=== PATIENT | male | born 1960 | race African-American/Black ===

== ENCOUNTER 2020-06-11 16:53 | Inpatient (IN) | payer OTHER, SELFPAY ==
[2020-06-11] MEDS ORDERED: Ondansetron PF 4 MG/2 ML Vial ONE (17:08)
[2020-06-11 17:20] LABS: #Basophils 0.1 thou/uL (0.0-0.2); #Eosinphils 0.2 thou/uL (0.0-0.7); #Lymphocytes 2.3 thou/uL (1.20-3.40); #Monocytes 0.4 thou/uL (0.11-0.59); #Neutrophils 5.1 thou/uL (1.40-6.50); %Basophils 0.7 % (0.0-1.0); %Eosinophils 2.6 % (0.0-10.0); %Lymphocytes 27.9 % (21.0-51.0); %Monocytes 5.2 % (0.0-10.0); %Neutrophils 63.6 % (42.0-75.0); Hemoglobin 15.6 g/dL (14.0-18.0); Mean Corpuscular Hemoglobin 31.7 pg (27.0-31.0); Mean Corpuscular Volume 90.3 fL (78.0-98.0); Mean Platelet Volume 7.3 fL (7.4-10.4); Platelet Count 249 thou/uL (130-400); RBC Distribution Width 11.2 % (11.5-14.5); Red Blood Cell (RBC) Count 4.94 mill/uL (4.70-6.10); White Blood Cell (WBC) Count 8.1 thou/uL (4.8-10.8)
[2020-06-11 17:26] LABS: PTT 23.3 sec (22.9-36.1); Prothrombin Time 13.6 sec (12.0-14.7)
--- NOTE | 2020-06-11 17:35 | CT ---
CT Brain WO Con History: Dizziness Comparison: None. 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 Moderate microvascular ischemic c hanges, greater in the right belcher radiata than left. No acute hemorrhage or territorial infarction. Old right medial orbital wall fracture. Calvarium is intact. Mastoids are clear. Right pontine hypodensity appears well formed, likely chronic as there is adjacent encephalomalacia. Impression: Chronic findings. No acute intracranial abnormality.
[2020-06-11] MEDS ORDERED: Diazepam 5 MG TAB ONE (17:40)
[2020-06-11] MEDS ORDERED: Meclizine HCl 25 MG TAB ONE (17:41)
[2020-06-11 17:42] LABS: ALT (SGPT) 21 U/L (8-55); AST (SGOT) 15 U/L (5-34); Albumin 4.4 g/dL (3.5-5.0); Alkaline Phosphatase 69 U/L (40-110); Anion Gap 17 mmol/L (10-20); BUN (Urea Nitrogen) 12 mg/dL (8.4-25.7); Bilirubin, Total 0.4 mg/dL (0.2-1.2); CK (CPK) 113 U/L (30-200); Calc. Creatinine Clearance 0 mL/min (70-130); Carbon Dioxide 21 mmol/L (22-29); Chloride 108 mmol/L (98-107); Estimated GFR-MDRD Greater than 90; Globulin 3.2 g/dL (2.4-3.5); Glucose 121 mg/dL (70-105); Protein, Total 7.6 g/dL (6.0-8.3); Sodium 143 mmol/L (136-145)
[2020-06-11 17:50] LABS: Potassium 2.9 mmol/L (3.5-5.1)
[2020-06-11] MEDS ORDERED: Potassium Chloride 20 MEQ TAB ONE (19:52)
[2020-06-11] MEDS ORDERED: Ondansetron PF 4 MG/2 ML Vial IVP PRN (20:17)
[2020-06-11] MEDS ORDERED: Acetaminophen 325 MG TAB PO PRN (20:17)
[2020-06-11] MEDS ORDERED: Senokot S 8.6-50 MG TAB PO PRN (20:17)
--- NOTE | 2020-06-11 21:26 | PDOC.HHP ---
Hospitalist HPI - History of Present Illness Dizziness, weakness and n/v History of Present Illness: 59M presents to the ED for evaluation of vertigo, weakness and nausea and vomiting. Reports symptoms started yesterday but worse today. Family member at the bedside reports they had to help him inside today because he was weak and was having trouble walking while retching. Patient reports bilateral leg wea kness, denies focal weakness, numbness or tingling. Reports a headache, denies fever, chills, cough, SOB. Denies history of symptoms in the past. Reports he has been told he had hypertension but states he does not take any medicine for it. Reports symptoms are most severe with movement. Reports ataxia. Patient with vomiting in the ED with any movement, Zofran, valium and meclizine given without much relief. Head CT scan with old infarctions which he was not aware he had. Reports a frontal headache which he said has changed; he initially had a posterior headache. He is being admitted to stroke to rule out a posterior CVA. Hospitalist ROS - Review of Systems Constitutional: reports: weakness Eyes: denies: pain, vision change, conjunctivae inflammation, eyelid inflammation, redness, other ENT: denies: ear pain, ear discharge, nose pain, nose discharge, nose congestion, mouth pain, mouth swelling, throat pain, throat swelling, other Respiratory: denies: cough, dry, shortness of breath, hemoptysis, SOB with excertion, pleuritic pain, sputum, wheezing, other Cardiovascular: reports: light headedness Gastrointestinal: reports: nausea, vomiting. denies: abdominal pain Genitourinary: reports: incontinence (reports he has trouble getting to the bathroom on time when he has the urge to urinate; this has been going on for months.) Musculoskeletal: denies: neck pain, shoulder pain, arm pain, back pain, hand pain, leg pain, foot pain, other Neurological: reports: weakness Hospitalist History - Past Medical History Cardiac: reports: HTN Pulmonary: reports: hypertension [employer]: reports: Vertigo Gastrointestinal: denies: no pertinent history, Constipation, Diverticulosis, GERD, GI bleed, Gastritis, Hemorrhoids, Inflam bowel disease, Irritable bowel disease, Peptic ulcer disease, Other - Past Surgical History Past Surgical History: reports: no pertinent history - Family History Family History: reports: cardiac disorder, hypertension - Social History Smoking Status: Current every day smoker Alcohol: reports: Heavy Drugs: reports: marijuana Living Situation: Alone Activity level: independent ambulation - Exam General Appearance: ill appearing Eye: PERRL ENT: normocephalic atraumatic, dry oral mucosa Neck: supple, no JVD Heart: RRR, normal peripheral pulses Respiratory: CTAB, normal chest expansion Gastrointestinal: soft, normal bowel sounds Extremities: no edema Skin: normal turgor Neurological: cranial nerve grossly intact Musculoskeletal: normal strength Psychiatric: normal affect, A&O x 3 Hospitalist Results - Labs Result Diagrams: 06/11/20 17:06 06/11/20 17:06 Lab results: WBC 8.1 thou/uL (4.8-10.8) 06/11/20 17:06 Hgb 15.6 g/dL (14.0-18.0) 06/11/20 17:06 Hct 44.6 % (42.0-52.0) 06/11/20 17:06 MCV 90.3 fL (78.0-98.0) 06/11/20 17:06 Plt Count 249 thou/uL (130-400) 06/11/20 17:06 Neutrophils % 63.6 % (42.0-75.0) 06/11/20 17:06 Sodium 143 mmol/L (136-145) 06/11/20 17:06 Potassium 2.9 mmol/L (3.5-5.1) L* 06/11/20 17:06 Chloride 108 mmol/L (98-107) H 06/11/20 17:06 Carbon Dioxide 21 mmol/L (22-29) L 06/11/20 17:06 BUN 12 mg/dL (8.4-25.7) 06/11/20 17:06 Creatinine 1.02 mg/dL (0.7-1.3) 06/11/20 17:06 Glucose 121 mg/dL (70-105) H 06/11/20 17:06 Calcium 9.0 mg/dL (7.8-10.44) 06/11/20 17:06 Total Bilirubin 0.4 mg/dL (0.2-1.2) 06/11/20 17:06 AST 15 U/L (5-34) 06/11/20 17:06 ALT 21 U/L (8-55) 06/11/20 17:06 Alkaline Phosphatase 69 U/L (40-110) 06/11/20 17:06 Creatine Kinase 113 U/L (30-200) 06/11/20 17:06 Troponin I Less than 0.010 ng/mL (< 0.028) 06/11/20 17:06 Serum Total Protein 7.6 g/dL (6.0-8.3) 06/11/20 17:06 Albumin 4.4 g/dL (3.5-5.0) 06/11/20 17:06 - Radiology Interpretation CT scan - head Status: report reviewed by me (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.) Hospitalist H&P A/P - Problem (1) Dizziness Code(s): R42 - DIZZINESS AND GIDDINESS Status: Acute (2) Hypertension Code(s): I10 - ESSENTIAL (PRIMARY) HYPERTENSION Status: Chronic (3) Nausea & vomiting Code(s): R11.2 - NAUSEA WITH VOMITING, UNSPECIFIED Status: Acute (4) Headache Code(s): R51 - HEADACHE Status: Acute (5) Weakness Code(s): R53.1 - WEAKNESS Status: Acute (6) Hypokalemia Code(s): E87.6 - HYPOKALEMIA Status: Acute - Plan Plan: Admit to Stroke MRI brain w/o contrast, Echo, carotid with doppler, neuro checks q4, PT/OT/Speech Repeat labs in am with lipids and tsh Zofran for nausea; meclizine q8h, ASA and statin Hypokalemia: given K oral in ED; NS with 40meq KCL @ 75mls/hr; recheck K in AM Will check UA DVT/GI prophylaxis
[2020-06-11] MEDS ORDERED: Promethazine HCl 25 MG/ML VIAL IM/IV SCH (21:45)
[2020-06-11] MEDS: Famotidine 20 MG TAB PO SCH (22:01)
[2020-06-11] MEDS: NS 0.9% w/ 40 MEQ KCL 1,000 ML IV SCH (22:35)
[2020-06-12 01:41] VITALS: BMI 38.2
[2020-06-12 05:24] LABS: #Eosinphils 0.1 thou/uL (0.0-0.7); #Lymphocytes 2.1 thou/uL (1.20-3.40); #Monocytes 0.6 thou/uL (0.11-0.59); #Neutrophils 4.2 thou/uL (1.40-6.50); %Basophils 0.3 % (0.0-1.0); %Eosinophils 1.8 % (0.0-10.0); %Lymphocytes 30.1 % (21.0-51.0); %Monocytes 8.8 % (0.0-10.0); Hemoglobin 14.2 g/dL (14.0-18.0); Mean Corpuscular HGB CONC 34.8 g/dL (32.0-36.0); Mean Corpuscular Hemoglobin 31.9 pg (27.0-31.0); Mean Corpuscular Volume 91.5 fL (78.0-98.0); Mean Platelet Volume 7.4 fL (7.4-10.4); Platelet Count 216 thou/uL (130-400); RBC Distribution Width 11.3 % (11.5-14.5); Red Blood Cell (RBC) Count 4.47 mill/uL (4.70-6.10)
[2020-06-12 05:58] LABS: Anion Gap 12 mmol/L (10-20); BUN (Urea Nitrogen) 10 mg/dL (8.4-25.7); Calc. Creatinine Clearance 154 mL/min (70-130); Calcium 8.3 mg/dL (7.8-10.44); Carbon Dioxide 21 mmol/L (22-29); Chloride 111 mmol/L (98-107); Cholesterol 149 mg/dl (< 200 Desired); Estimated GFR-MDRD Greater than 90; Glucose 97 mg/dL (70-105); HDL Cholesterol 30 mg/dL (>60 Neg Risk); LDL Cholesterol, Calculated 92 mg/dL; Sodium 140 mmol/L (136-145); Triglycerides 137 mg/dL (Less than 150)
[2020-06-12] MEDS: Meclizine HCl 25 MG TAB PO SCH ×3 (06:10→22:43)
--- NOTE | 2020-06-12 08:14 | ULT ---
BILATERAL CAROTID DUPLEX ULTRASOUND INCLUDING COLOR AN DSPECTRAL DOPPLER IMAGING: HISTORY: Dizziness. FINDINGS: Very mild intimal thickening, particularly in the distal left CCA. PSV right ICA 54 cm/s. EDV 14 cm/s. ICA/CCA ratio 0.4. PSV left ICA 65 cm/s. EDV 23 cm/s. ICA/CCA ratio 0.9. Vertebral flow is antegrade. IMPRESSION: No hemodynamically significant stenosis. 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 POS: OFF
[2020-06-12] MEDS: Aspirin 325 mg Enteric Coated Tablet PO SCH (08:53)
[2020-06-12] MEDS: Famotidine 20 MG TAB PO SCH ×2 (08:53→20:45)
[2020-06-12] MEDS: Enoxaparin Sodium 40 MG/0.4 ML SYRINGE SC SCH (08:53)
--- NOTE | 2020-06-12 09:53 | MRI ---
EXAM: MRI Brain WO Con PROVIDED CLINICAL HISTORY: Vertigo/dizziness. Nausea and vomiting. COMPARISON: CT head on 06/11/2020 FINDINGS: There is increased FLAIR and T2-weighted signal intensity seen within the periventricular and subcort ical white matter which is nonspecific but likely attributable to chronic small vessel ischemic changes with areas of minimal cavitation of white matter infarctions. Small cavitated lacunar infarct ion are seen in the left thalamus, right basal ganglia, and in the jerome bilaterally. No areas of restricted diffusion are seen to suggest an acute infarction. The septum pellucidum and third ventricle are in the midline. Mild cerebral and cerebellar volume los s is present. The ventricular system is normal in size, shape, and position for the degree of sulcal atrophy. Appropriate flow voids are demonstrated in the large intracranial vessels at the base of the brain. Trace mucosal thickening is seen in left ethmoidal air cells. There is trace mucosal thickening seen in a few right mastoid air cells. The orbits and remainder of the the skull base have a normal MRI appearance. IMPRESSION: 1. No acute intracranial abnormalities demonstrated. 2. Evidence likely attributable to chronic small vessel ischemic changes with scattered remote lacuna r infarctions within the right basal ganglia, left thalamus, and in the jerome.
[2020-06-12 10:11] LABS: Bacteria/HPF None Seen HPF (None Seen); Bilirubin Negative (Negative); Blood, Urine Negative (Negative); Clarity Clear (Clear); Glucose, Urine (Dipstick) Normal (Negative); Ketone, Urine Negative (Negative); Leukocyte Negative Leu/uL (Negative); Mucous/LPF 1+ LPF (<2+); Nitrite Negative (Negative); Protein, Urine (Dipstick) 20 mg/dL (Neg-Trace); RBC/HPF 0-3 HPF (0-3); Squamous Epithelial 0-3 HPF (0-3); Urobilinogen Normal mg/dL (Less than 2)
[2020-06-12 10:12] LABS: Urine Culture Reflex Yes Yes
[2020-06-12 10:22] LABS: Amphetamine Not Detected (NotDetected); Barbiturates Screen Not Detected (NotDetected); Benzodiazepine Screen Detected (NotDetected); Cocaine Metabolite Screen Not Detected (NotDetected); Medtox Control Line Valid? VALID (VALID); Medtox Reader # READER 1; Methadone Not Detected (NotDetected); Methamphetamine Not Detected (NotDetected); Opiate Screen Not Detected (NotDetected); Oxycodone Screen Not Detected (NotDetected); Phencyclidine (PCP) Not Detected (NotDetected); THC/Cannabinoid Screen Detected (NotDetected); Tricyclic Screen Not Detected (NotDetected)
[2020-06-12] MEDS: NS 0.9% w/ 40 MEQ KCL 1,000 ML IV SCH (10:57)
--- NOTE | 2020-06-12 11:47 | PDOC.HOSPP ---
- Subjective Encounter Date: 06/12/20 Encounter Time: 08:50 Subjective: Patient feels slightly better. He is able to walk to the restroom and take a shower with his 's help. His dizziness is improving. It is a room spinning sensation. No hearing deficits or tinnitus. No fullness in his ears. - Objective Vital Signs & Weight: Vital Signs (12 hours) Temp Pulse Resp BP Pulse Ox 06/12/20 07:27 98.2 F 62 20 166/100 H 97 06/12/20 04:00 97.8 F 63 14 176/91 H 98 06/12/20 00:00 98.4 F 90 14 163/86 H 98 Weight Weight 243 lb 14.4 oz I&O: 06/11/20 06/12/20 06/13/20 06:59 06:59 06:59 Intake Total 350 Output Total 400 Balance -50 Result Diagrams: 06/12/20 04:51 06/12/20 04:51 Hospitalist ROS - Medication Medications: Active Medications Generic Name Dose Route Start Last Admin Trade Name Franklyn PRN Reason Stop Dose Admin Aspirin 325 mg 06/12/20 09:00 06/12/20 08:53 Aspirin 325 Mg Enteric Coated Tablet PO 325 mg DAILY LUPE Administration Enoxaparin Sodium 40 mg 06/12/20 09:00 06/12/20 08:53 Enoxaparin Sodium 40 Mg/0.4 Ml Syringe SC 40 mg 0900 LUPE Administration Famotidine 20 mg 06/11/20 21:00 06/12/20 08:53 Famotidine 20 Mg Tab PO 20 mg BID LUPE Administration Potassium Chloride/Sodium Chloride 1,000 mls @ 75 mls/hr 06/11/20 20:30 06/12/20 10:57 Ns 0.9% W/ 40 Meq Kcl IV Not Given .[id number] LUPE Meclizine HCl 25 mg 06/12/20 06:00 06/12/20 06:10 Meclizine Hcl 25 Mg Tab PO 25 mg Q8HR LUPE Administration - Exam General Appearance: NAD, awake alert Eye: PERRL ENT: normocephalic atraumatic ENT - other findings: No hearing deficits or tinnitus. No fullness in his ears. Neck: supple Heart: RRR Respiratory: CTAB, normal chest expansion Gastrointestinal: soft, normal bowel sounds Neurological: cranial nerve grossly intact, no focal deficits Psychiatric: A&O x 3 Hosp A/P - Plan (1) Dizziness Code(s): R42 - DIZZINESS AND GIDDINESS Status: Acute (2) Hypertension Code(s): I10 - ESSENTIAL (PRIMARY) HYPERTENSION Status: Chronic (3) Nausea & vomiting Code(s): R11.2 - NAUSEA WITH VOMITING, UNSPECIFIED Status: Acute (4) Headache Code(s): R51 - HEADACHE Status: Acute (5) Weakness Code(s): R53.1 - WEAKNESS Status: Acute (6) Hypokalemia Code(s): E87.6 - HYPOKALEMIA Status: Acute -Resolved Dizziness -Etiology so far unknown as imaging studies are nondiagnostic so far as below -No hearing deficits no ear fullness no tinnitus -No recent infection including cough and fever. UDS shows benzos and marijuana positive. 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 Meclizine helping him.
[2020-06-12] MEDS ORDERED: hydrALAZINE 20 MG/ML VIAL SLOW IVP PRN (13:17)
[2020-06-12] MEDS: hydrALAZINE 25 MG TAB PO SCH ×2 (13:56→20:45)
[2020-06-12] MEDS: Atorvastatin Calcium 40 MG TAB PO SCH (20:45)
[2020-06-12] MEDS: Amlodipine 5 MG TAB PO SCH (20:45)
[2020-06-13] MEDS ORDERED: Enalaprilat Dihydrate 1.25 MG/ML VIAL SLOW IVP SCH (05:45)
[2020-06-13] MEDS: Meclizine HCl 25 MG TAB PO SCH ×3 (06:10→23:46)
[2020-06-13] MEDS: Famotidine 20 MG TAB PO SCH ×2 (09:17→20:23)
[2020-06-13] MEDS: Amlodipine 5 MG TAB PO SCH (09:17)
[2020-06-13] MEDS: Aspirin 325 mg Enteric Coated Tablet PO SCH (09:17)
[2020-06-13] MEDS: hydrALAZINE 25 MG TAB PO SCH ×3 (09:17→20:23)
[2020-06-13] MEDS: Enoxaparin Sodium 40 MG/0.4 ML SYRINGE SC SCH (09:17)
[2020-06-13] MEDS ORDERED: hydrALAZINE 25 MG TAB PO SCH ×2 (09:45→10:15)
--- NOTE | 2020-06-13 11:53 | PDOC.HOSPP ---
- Subjective Encounter Date: 06/13/20 Encounter Time: 09:00 Subjective: Patient sitting in the chair he feels good. No disease seen times today. His blood pressure is still in the 170 range. He has not taken me his blood pressure medications for years. Discussed with RN. Will be a little aggressive in increasing his hydralazine dose. I am also adding diuretics. - Objective Vital Signs & Weight: Vital Signs (12 hours) Temp Pulse Resp BP BP Pulse Ox 06/13/20 11:41 98 F 68 20 164/98 H 96 06/13/20 10:19 67 181/95 H 06/13/20 07:35 97.9 F 65 20 170/91 H 98 06/13/20 06:10 172/91 H 06/13/20 04:45 182/99 H 06/13/20 03:14 98.0 F 62 15 166/94 H 98 06/13/20 00:15 98.2 F 64 20 164/88 H 97 Weight Weight 241 lb 12.8 oz I&O: 06/12/20 06/13/20 06/14/20 06:59 06:59 06:59 Intake Total 350 Output Total 400 Balance -50 Result Diagrams: 06/12/20 04:51 06/12/20 04:51 Hospitalist ROS - Medication Medications: Active Medications Generic Name Dose Route Start Last Admin Trade Name Franklyn PRN Reason Stop Dose Admin Aspirin 325 mg 06/12/20 09:00 06/13/20 09:17 Aspirin 325 Mg Enteric Coated Tablet PO 325 mg DAILY LUPE Administration Atorvastatin Calcium 40 mg 06/12/20 21:00 06/12/20 20:45 Atorvastatin Calcium 40 Mg Tab PO 40 mg HS LUPE Administration Enoxaparin Sodium 40 mg 06/12/20 09:00 06/13/20 09:17 Enoxaparin Sodium 40 Mg/0.4 Ml Syringe SC 40 mg 0900 LUPE Administration Famotidine 20 mg 06/11/20 21:00 06/13/20 09:17 Famotidine 20 Mg Tab PO 20 mg BID LUPE Administration Hydralazine HCl 50 mg 06/13/20 10:15 06/13/20 10:19 Hydralazine 25 Mg Tab PO 06/13/20 13:00 50 mg NOW LUPE Administration Meclizine HCl 25 mg 06/12/20 06:00 06/13/20 06:10 Meclizine Hcl 25 Mg Tab PO 25 mg Q8HR LUPE Administration - Exam General Appearance: NAD, awake alert Eye: PERRL ENT: normocephalic atraumatic Neck: supple Heart: RRR Respiratory: CTAB, normal chest expansion Gastrointestinal: soft, normal bowel sounds Psychiatric: A&O x 3 Hosp A/P - Plan (1) Dizziness Code(s): R42 - DIZZINESS AND GIDDINESS Status: Acute (2) Hypertension Code(s): I10 - ESSENTIAL (PRIMARY) HYPERTENSION Status: Chronic (3) Nausea & vomiting Code(s): R11.2 - NAUSEA WITH VOMITING, UNSPECIFIED Status: Acute (4) Headache Code(s): R51 - HEADACHE Status: Acute (5) Weakness Code(s): R53.1 - WEAKNESS Status: Acute (6) Hypokalemia Code(s): E87.6 - HYPOKALEMIA Status: Acute -Resolved Dizziness -Etiology so far unknown as imaging studies are nondiagnostic so far as below -No hearing deficits no ear fullness no tinnitus -No recent infection including cough and fever. UDS shows benzos and marijuana positive. 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 Meclizine helping him. -Echo shows EF of 55%. No valvular abnormalities. Uptitrating his blood pressure medications. His dizziness probably reflective of uncontrolled blood pressure at baseline. Diuretics and hydralazine. I will follow-up higher even though the hydrochlorothiazide once daily I will do twice a day today and and then see how his blood pressure trending next 24 hours and then switch to once daily. If blood pressure improved probable discharge tomorrow
--- NOTE | 2020-06-13 12:53 | CON ---
NEUROLOGY CONSULTATION DATE OF CONSULTATION: 06/13/2020 REASON FOR CONSULTATION: Dizziness, rule out posterior circulation TIA. HISTORY OF PRESENT ILLNESS: Mr. Yo Hernandez is a 59-year-old male with history significant for extreme dizziness with nausea, vomiting, and generalized weakness, presented to the emergency room on 06/11/2020. The patient also reported headache with bilateral leg weakness, but he denies any focal weakness or focal paresthesias. Reports nausea, vomiting, but denies chest pain, ear pain, cough, shortness of breath, loss of vision, blurred vision, or abnormal involuntary movements associated with the episode. In the emergency room, he received Zofran, Valium, and meclizine without much relief. Head CT was done, which showed prior infarction, but no acute intracranial pathology. He was admitted to rule out posterior circulation TIA. REVIEW OF SYSTEMS: All 14 systems were reviewed and were negative except the pertinent positives and negatives mentioned in the HPI. PAST MEDICAL HISTORY: Hypertension, vertigo. PAST SURGICAL HISTORY: No significant past surgical history. FAMILY HISTORY: Significant for coronary artery disease, hypertension, smoking. SOCIAL HISTORY: The patient smokes every day. History of alcohol and marijuana abuse. He lives alone and activity level is independent ambulation. ALLERGIES: NKDA - Objective Vital Signs & Weight: Vital Signs (12 hours) Temp Pulse Resp BP BP Pulse Ox 06/13/20 11:41 98 F 68 20 164/98 H 96 06/13/20 10:19 67 181/95 H 06/13/20 07:35 97.9 F 65 20 170/91 H 98 06/13/20 06:10 172/91 H 06/13/20 04:45 182/99 H 06/13/20 03:14 98.0 F 62 15 166/94 H 98 06/13/20 00:15 98.2 F 64 20 164/88 H 97 Weight Weight 241 lb 12.8 oz I&O: 06/12/20 06/13/20 06/14/20 06:59 06:59 06:59 Intake Total 350 Output Total 400 Balance -50 Active Medications Generic Name Dose Route Start Last Admin Trade Name Freq PRN Reason Stop Dose Admin Aspirin 325 mg 06/12/20 09:00 06/13/20 09:17 Aspirin 325 Mg Enteric Coated Tablet PO 325 mg DAILY LUPE Administration Atorvastatin Calcium 40 mg 06/12/20 21:00 06/12/20 20:45 Atorvastatin Calcium 40 Mg Tab PO 40 mg HS LUPE Administration Enoxaparin Sodium 40 mg 06/12/20 09:00 06/13/20 09:17 Enoxaparin Sodium 40 Mg/0.4 Ml Syringe SC 40 mg 0900 LUPE Administration Famotidine 20 mg 06/11/20 21:00 06/13/20 09:17 Famotidine 20 Mg Tab PO 20 mg BID LUPE Administration Hydralazine HCl 50 mg 06/13/20 10:15 06/13/20 10:19 Hydralazine 25 Mg Tab PO 06/13/20 13:00 50 mg NOW LUPE Administration Meclizine HCl 25 mg 06/12/20 06:00 06/13/20 06:10 Meclizine Hcl 25 Mg Tab PO 25 mg Q8HR LUPE Administration PHYSICAL EXAMINATION: General Appearance: ill appearing Eye: PERRL ENT: normocephalic atraumatic, dry oral mucosa Neck: supple, no JVD Heart: RRR, normal peripheral pulses Respiratory: CTAB, normal chest expansion Gastrointestinal: soft, normal bowel sounds Extremities: no edema Skin: normal turgor Neurological: Mental status, the patient is alert and oriented to person, place, and time. Recent and remote memory, intact. Fund of knowledge is appropriate. Speech is clear. Motor, muscle tone and bulk are normal. Strength 5/5 bilaterally. Sensory intact. Cerebellar, finger-nose testing intact. Gait deferred due to the patient's safety reason. DATA REVIEWED: I reviewed the labs, which were significant for hypokalemia on initial presentation and hyperglycemia. Rest of the labs were unremarkable. I reviewed the head CT, which was negative for acute intracranial pathology. MRI of the brain reviewed, which was also negative for acute intracranial pathology. Carotid Dopplers were unremarkable. Echo was also unremarkable. Lab results: WBC 8.1 thou/uL (4.8-10.8) 06/11/20 17:06 Hgb 15.6 g/dL (14.0-18.0) 06/11/20 17:06 Hct 44.6 % (42.0-52.0) 06/11/20 17:06 MCV 90.3 fL (78.0-98.0) 06/11/20 17:06 Plt Count 249 thou/uL (130-400) 06/11/20 17:06 Neutrophils % 63.6 % (42.0-75.0) 06/11/20 17:06 Sodium 143 mmol/L (136-145) 06/11/20 17:06 Potassium 2.9 mmol/L (3.5-5.1) L* 06/11/20 17:06 Chloride 108 mmol/L (98-107) H 06/11/20 17:06 Carbon Dioxide 21 mmol/L (22-29) L 06/11/20 17:06 BUN 12 mg/dL (8.4-25.7) 06/11/20 17:06 Creatinine 1.02 mg/dL (0.7-1.3) 06/11/20 17:06 Glucose 121 mg/dL (70-105) H 06/11/20 17:06 Calcium 9.0 mg/dL (7.8-10.44) 06/11/20 17:06 Total Bilirubin 0.4 mg/dL (0.2-1.2) 06/11/20 17:06 AST 15 U/L (5-34) 06/11/20 17:06 ALT 21 U/L (8-55) 06/11/20 17:06 Alkaline Phosphatase 69 U/L (40-110) 06/11/20 17:06 Creatine Kinase 113 U/L (30-200) 06/11/20 17:06 Troponin I Less than 0.010 ng/mL (< 0.028) 06/11/20 17:06 Serum Total Protein 7.6 g/dL (6.0-8.3) 06/11/20 17:06 Albumin 4.4 g/dL (3.5-5.0) 06/11/20 17:06 - Radiology Interpretation CT scan - head Status: report reviewed by me (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 Yo Hernandez is consulted for extreme dizziness with nausea, vomiting, and headache in the setting of hypertensive emergency. Dizziness most likely secondary to hypertensive emergency. Emergency MRI of the brain reviewed, which was negative for acute intracranial process. Continue aspirin and statin for secondary stroke prevention since he has risk factors. Continue symptomatic treatment for dizziness, nausea, and vomiting per primary team. Neuro checks every 4 hours. Carotid Dopplers did not show hemodynamically significant stenosis. Continue strict control of blood pressure and blood glucose. Continue home medications. The patient was counseled about medication compliance since he has been not taking hypertensive medication for the last several years. The patient was also counseled about tobacco and alcohol abuse. Continue medical management per primary team, PT/OT. We will continue to follow. Thank you for the consult. Case was discussed with the patient and with the primary attending, Dr. Calle and during MD rounds. Job ID: [id number] [id number]
[2020-06-13] MEDS ORDERED: Hydrochlorothiazide 25 MG TAB PO SCH (13:30)
[2020-06-13] MEDS: Atorvastatin Calcium 40 MG TAB PO SCH (20:23)
[2020-06-13] MEDS: Hydrochlorothiazide 25 MG TAB PO SCH (20:24)
[2020-06-14] MEDS: Meclizine HCl 25 MG TAB PO SCH ×3 (05:48→21:06)
[2020-06-14] MEDS: Enoxaparin Sodium 40 MG/0.4 ML SYRINGE SC SCH (08:09)
[2020-06-14] MEDS: Aspirin 325 mg Enteric Coated Tablet PO SCH (08:11)
[2020-06-14] MEDS: hydrALAZINE 25 MG TAB PO SCH ×4 (08:11→21:06)
[2020-06-14] MEDS: Famotidine 20 MG TAB PO SCH ×2 (08:12→21:05)
[2020-06-14] MEDS: Hydrochlorothiazide 25 MG TAB PO SCH (08:12)
[2020-06-14] MEDS ORDERED: Hydrochlorothiazide 25 MG TAB PO SCH (09:00)
--- NOTE | 2020-06-14 11:26 | ULT ---
Exam: Bilateral renal ultrasound HISTORY: Uncontrolled hypertension COMPARISON: None FINDINGS: Right kidney: Increased cortical echotexture. No hydronephrosis. Right kidney measurements: 5.1 x 10.5 x 6.1 cm. Left kidney: Increased cortical echotexture. No hydronephrosis Left kidney measurements 5.0 x 5.8 x 12.0 cm. Urinary bladder: Normal mucosa. 188 mL bladder volume IMPRESSION: 1. Increased cortical echotexture. Correlate for medical renal disease 2. No hydronephrosis.
[2020-06-14] MEDS ORDERED: cloNIDine 0.1 MG TAB PO PRN ×2 (11:50→19:20)
--- NOTE | 2020-06-14 11:51 | PDOC.HOSPP ---
- Subjective Encounter Date: 06/14/20 Encounter Time: 08:40 Subjective: Patient's blood pressure is not budging for my intervention. Increasing hydralazine dose and frequency and switch to hydrochlorothiazide which he tolerated well yesterday to chlorthalidone as long-acting diuretic. Getting r enal arterial ultrasound, a renin and angiotensin level and a nephrology consult for further work-up. Plan explained to the patient and discussed with RN - Objective Vital Signs & Weight: Vital Signs (12 hours) Temp Pulse Resp BP BP Pulse Ox 06/14/20 11:45 97.8 F 79 18 151/94 H 97 06/14/20 09:46 162/89 H 06/14/20 08:11 61 173/94 H 06/14/20 07:25 98.2 F 61 18 173/94 H 90 L 06/14/20 04:00 98.8 F 64 18 162/99 H 95 06/13/20 23:58 97.7 F 78 18 175/91 H 96 Weight Weight 241 lb 9.6 oz I&O: 06/13/20 06/14/20 06/15/20 06:59 06:59 06:59 Intake Total 350 347 597 Output Total 400 Balance -50 347 597 Result Diagrams: 06/12/20 04:51 06/12/20 04:51 Hospitalist ROS - Medication Medications: Active Medications Generic Name Dose Route Start Last Admin Trade Name Freq PRN Reason Stop Dose Admin Aspirin 325 mg 06/12/20 09:00 06/14/20 08:11 Aspirin 325 Mg Enteric Coated Tablet PO 325 mg DAILY LUPE Administration Atorvastatin Calcium 40 mg 06/12/20 21:00 06/13/20 20:23 Atorvastatin Calcium 40 Mg Tab PO 40 mg HS LUPE Administration Enoxaparin Sodium 40 mg 06/12/20 09:00 06/14/20 08:09 Enoxaparin Sodium 40 Mg/0.4 Ml Syringe SC 40 mg 0900 LUPE Administration Famotidine 20 mg 06/11/20 21:00 06/14/20 08:12 Famotidine 20 Mg Tab PO 20 mg BID LUPE Administration Meclizine HCl 25 mg 06/12/20 06:00 06/14/20 05:48 Meclizine Hcl 25 Mg Tab PO 25 mg Q8HR LUPE Administration - Exam General Appearance: NAD, awake alert Eye: PERRL ENT: normocephalic atraumatic Neck: supple Heart: RRR, normal peripheral pulses Respiratory: CTAB, normal chest expansion Gastrointestinal: soft, normal bowel sounds Neurological: cranial nerve grossly intact, no focal deficits Psychiatric: A&O x 3 Hosp A/P - Plan (1) Dizziness Code(s): R42 - DIZZINESS AND GIDDINESS Status: Acute (2) Hypertension Code(s): I10 - ESSENTIAL (PRIMARY) HYPERTENSION Status: Chronic (3) Nausea & vomiting Code(s): R11.2 - NAUSEA WITH VOMITING, UNSPECIFIED Status: Acute (4) Headache Code(s): R51 - HEADACHE Status: Acute (5) Weakness Code(s): R53.1 - WEAKNESS Status: Acute (6) Hypokalemia Code(s): E87.6 - HYPOKALEMIA Status: Acute -Resolved Dizziness -Etiology so far unknown as imaging studies are nondiagnostic so far as below -No hearing deficits no ear fullness no tinnitus -No recent infection including cough and fever. UDS shows benzos and marijuana positive. 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 Meclizine helping him. -Echo shows EF of 55%. No valvular abnormalities. Uptitrating his blood pressure medications. His dizziness probably reflective of uncontrolled blood pressure at baseline. Diuretics and hydralazine. I will follow-up higher even though the hydrochlorothiazide once daily I will do twice a day today and and then see how his blood pressure trending next 24 hours and then switch to once daily. If blood pressure improved probable discharge tomorrow Patient's blood pressure is not budging for my intervention. Increasing hydralazine dose and frequency and switch to hydrochlorothiazide which he tolerated well yesterday to chlorthalidone as long-acting diuretic. Getting renal arterial ultrasound, a renin and angiotensin level and a nephrology consult for further work-up. Plan explained to the patient and discussed with RN.
[2020-06-14] MEDS ORDERED: cloNIDine 0.1 MG TAB PO SCH (12:00)
[2020-06-14 13:19] LABS: SARS-CoV-2 MS2 Positive; SARS-CoV-2 N Gene Negative; SARS-CoV-2 S Gene Negative; SARS-CoV-2 by NAA Not Detected (NotDetected); SARS-CoV-2 orf1ab Negative
[2020-06-14 13:32] LABS: Anion Gap 15 mmol/L (10-20); BUN (Urea Nitrogen) 10 mg/dL (8.4-25.7); Calc. Creatinine Clearance 152 mL/min (70-130); Calcium 9.6 mg/dL (7.8-10.44); Carbon Dioxide 23 mmol/L (22-29); Chloride 105 mmol/L (98-107); Estimated GFR-MDRD Greater than 90; Glucose 91 mg/dL (70-105); Potassium 3.7 mmol/L (3.5-5.1); Sodium 139 mmol/L (136-145)
[2020-06-14] MEDS: Chlorthalidone 25 MG TAB PO SCH (21:05)
[2020-06-14] MEDS: Atorvastatin Calcium 40 MG TAB PO SCH (21:06)
[2020-06-15] MEDS: Meclizine HCl 25 MG TAB PO SCH ×3 (05:17→20:57)
--- NOTE | 2020-06-15 07:36 | CON ---
DATE OF CONSULTATION: CONSULTING PHYSICIAN: Shadi Cunha MD REQUESTING PHYSICIAN: Priyanka Calle MD REASON FOR CONSULTATION: High blood pressure control. IMPRESSION: 1. Hypertension, suboptimally controlled. 2. Mild metabolic acidosis. PLAN: Given the questionable history of medication compliance in this patient, he will benefit more from antihypertensive medications with simple dosing regimen. We will prefer medications that are taken daily as opposed to medications that are to be administered multiple times a day in order to improve the compliance of this patient. Therefore, we will discontinue hydralazine and switch this patient over to Procardia starting from tomorrow and then adjust the dose accordingly to optimize the hemodynamics. Avoid precipitous drop in the blood pressure, so that the patient does not end up with worsening neurologic symptoms including CVA. HISTORY OF PRESENT ILLNESS: History is that of a 59-year-old gentleman with a known history of hypertension, with no reliable medical treatment, presented with dizziness, weakness, nausea, and vomiting, admitted to be worked up for possible cerebrovascular accident. Due to the noted blood pressure of this patient, the Medicine team decided to involve Renal to help with the management of this patient's hypertension, thus the Renal consultation. PAST MEDICAL HISTORY: Significant for that of hypertension. MEDICATIONS: As documented on [employer]. ALLERGIES: NO KNOWN DRUG ALLERGIES. FAMILY HISTORY: Significant for hypertension. SOCIAL HISTORY: Significant for tobacco use and alcohol with marijuana use also. REVIEW OF SYSTEMS: As documented in the body of the history. All other systems were reviewed and found not to be significantly related to presenting illness. PHYSICAL EXAMINATION: GENERAL: The patient noted not to be in any obvious distress. VITAL SIGNS: Noted with the following vital signs; temperature 98.2, pulse 71, blood pressure 170/94, respiratory rate of 18, and O2 saturation of 97%. HEENT: Unremarkable. CARDIOVASCULAR SYSTEM: First and second heart sounds were heard. RESPIRATORY SYSTEM: Clear to auscultation. DIGESTIVE SYSTEM: Revealed a benign abdomen. Positive bowel sounds. EXTREMITIES: No peripheral edema. SKIN: No new gross rash. LYMPHATICS: No peripheral lymphadenopathy. SUMMARY: A 59-year-old gentleman with poorly controlled hypertension, presented here with some neurologic symptoms. Thank you for this consultation. We will follow with you. Job ID: [id number]
[2020-06-15] MEDS: NIFEdipine XL 60 MG TAB PO SCH (09:00)
[2020-06-15] MEDS: Aspirin 325 mg Enteric Coated Tablet PO SCH (09:00)
[2020-06-15] MEDS: Chlorthalidone 25 MG TAB PO SCH ×2 (09:01→20:57)
[2020-06-15] MEDS: Famotidine 20 MG TAB PO SCH ×2 (09:01→20:57)
[2020-06-15] MEDS: Enoxaparin Sodium 40 MG/0.4 ML SYRINGE SC SCH (09:01)
--- NOTE | 2020-06-15 11:27 | PDOC.HOSPP ---
- Subjective Encounter Date: 06/15/20 Encounter Time: 08:50 Subjective: Patient is doing well. He has no complaints. His blood pressure is improved. Renal artery ultrasound no stenosis. - Objective Vital Signs & Weight: Vital Signs (12 hours) Temp Pulse Resp BP BP Pulse Ox 06/15/20 09:00 97 06/15/20 07:23 97.8 F 64 17 137/93 H 97 06/15/20 04:29 97.1 F L 62 18 119/80 93 L 06/15/20 00:18 97.2 F L 63 18 152/87 H 98 Weight Weight 240 lb I&O: 06/14/20 06/15/20 06/16/20 06:59 06:59 06:59 Intake Total 347 1932 Output Total 550 Balance 347 1382 Result Diagrams: 06/12/20 04:51 06/14/20 12:32 Hospitalist ROS - Medication Medications: Active Medications Generic Name Dose Route Start Last Admin Trade Name Freq PRN Reason Stop Dose Admin Aspirin 325 mg 06/12/20 09:00 06/15/20 09:00 Aspirin 325 Mg Enteric Coated Tablet PO 325 mg DAILY LUPE Administration Atorvastatin Calcium 40 mg 06/12/20 21:00 06/14/20 21:06 Atorvastatin Calcium 40 Mg Tab PO 40 mg HS LUPE Administration Chlorthalidone 25 mg 06/14/20 21:00 06/15/20 09:01 Chlorthalidone 25 Mg Tab PO 25 mg BID LUPE Administration Clonidine 0.1 mg 06/14/20 19:20 06/15/20 01:09 Clonidine 0.1 Mg Tab PO 0.1 mg Q6H PRN Administration SBP GREATER THAN 150 Enoxaparin Sodium 40 mg 06/12/20 09:00 06/15/20 09:01 Enoxaparin Sodium 40 Mg/0.4 Ml Syringe SC 40 mg 09 LUPE Administration Famotidine 20 mg 06/11/20 21:00 06/15/20 09:01 Famotidine 20 Mg Tab PO 20 mg BID LUPE Administration Meclizine HCl 25 mg 06/12/20 06:00 06/15/20 05:17 Meclizine Hcl 25 Mg Tab PO 25 mg Q8HR LUPE Administration Nifedipine 60 mg 06/15/20 09:00 06/15/20 09:00 Nifedipine Xl 60 Mg Tab PO 60 mg DAILY LUPE Administration - Exam General Appearance: NAD, awake alert Eye: PERRL ENT: normocephalic atraumatic Neck: supple Heart: RRR, normal peripheral pulses Respiratory: CTAB Gastrointestinal: soft, no palpable masses Neurological: no focal deficits Psychiatric: A&O x 3 Hosp A/P - Plan (1) Dizziness Code(s): R42 - DIZZINESS AND GIDDINESS Status: Acute (2) Hypertension Code(s): I10 - ESSENTIAL (PRIMARY) HYPERTENSION Status: Chronic (3) Nausea & vomiting Code(s): R11.2 - NAUSEA WITH VOMITING, UNSPECIFIED Status: Acute (4) Headache Code(s): R51 - HEADACHE Status: Acute (5) Weakness Code(s): R53.1 - WEAKNESS Status: Acute (6) Hypokalemia Code(s): E87.6 - HYPOKALEMIA Status: Acute -Resolved Dizziness -Etiology so far unknown as imaging studies are nondiagnostic so far as below -No hearing deficits no ear fullness no tinnitus -No recent infection including cough and fever. UDS shows benzos and marijuana positive. 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 Meclizine helping him. -Echo shows EF of 55%. No valvular abnormalities. Uptitrating his blood pressure medications. His dizziness probably reflective of uncontrolled blood pressure at baseline. Diuretics and hydralazine. I will follow-up higher even though the hydrochlorothiazide once daily I will do twice a day today and and then see how his blood pressure trending next 24 hours and then switch to once daily. If blood pressure improved probable discharge tomorrow Patient's blood pressure is not budging for my intervention. Increasing hydralazine dose and frequency and switch to hydrochlorothiazide which he tolerated well yesterday to chlorthalidone as long-acting diuretic. Getting renal arterial ultrasound, a renin and angiotensin level and a nephrology consult for further work-up. Plan explained to the patient and discussed with RN. Renal artery ultrasound negative for stenosis. His blood pressure is improving. The medication changed last evening. We will wait for 24 hours to make sure he is tolerating and no further jump in the blood pressure. If blood pressure continued improved then likely discharge tomorrow.
--- NOTE | 2020-06-15 19:26 | PRG ---
DATE OF SERVICE: 06/15/2020 SUBJECTIVE: The patient is seen and examined, seems to be doing much better, noted with the following vital signs. OBJECTIVE: VITAL SIGNS: Afebrile, temperature 97.4, pulse 81, respiratory rate of 16, O2 saturations are 98% with a blood pressure of 119/80 to 140/89. HEENT: Unremarkable. CARDIOVASCULAR SYSTEM: First and second heart sounds were heard. RESPIRATORY SYSTEM: Clear to auscultation. DIGESTIVE SYSTEM: Revealed a benign abdomen with positive bowel sounds. EXTREMITIES: No peripheral edema. SKIN: No new gross rash. LYMPHATICS: No peripheral lymphadenopathy. IMPRESSION: [id number] high blood pressure, which seems to improve on current regimen of antihypertensive medications. PLAN: We will continue with current management. Job ID: [id number]
[2020-06-15] MEDS: Atorvastatin Calcium 40 MG TAB PO SCH (20:57)
[2020-06-16 05:22] VITALS: TEMP 98.2
[2020-06-16 05:54] LABS: Anion Gap 14 mmol/L (10-20); BUN (Urea Nitrogen) 15 mg/dL (8.4-25.7); Calc. Creatinine Clearance 138 mL/min (70-130); Calcium 9.5 mg/dL (7.8-10.44); Carbon Dioxide 24 mmol/L (22-29); Chloride 102 mmol/L (98-107); Estimated GFR-MDRD Greater than 90; Glucose 99 mg/dL (70-105); Potassium 3.6 mmol/L (3.5-5.1); Sodium 136 mmol/L (136-145)
[2020-06-16] MEDS: Meclizine HCl 25 MG TAB PO SCH (07:43)
[2020-06-16] MEDS: NIFEdipine XL 60 MG TAB PO SCH (09:59)
[2020-06-16] MEDS: Aspirin 325 mg Enteric Coated Tablet PO SCH (09:59)
[2020-06-16] MEDS: Famotidine 20 MG TAB PO SCH (09:59)
[2020-06-16] MEDS: Enoxaparin Sodium 40 MG/0.4 ML SYRINGE SC SCH (10:00)
[2020-06-16] MEDS: Chlorthalidone 25 MG TAB PO SCH (10:00)
[2020-06-16 13:11] VITALS: BP 137/89
--- NOTE | 2020-06-16 14:44 | DIS ---
DATE OF ADMISSION: 06/14/2020 DATE OF DISCHARGE: 06/16/2020 DISCHARGE DIAGNOSES: 1. Dizziness secondary to uncontrolled hypertension. 2. Noncompliant with medications. Accelerated hypertension. DISCHARGE MEDICATIONS: 1. Procardia XL 60 mg daily. 2. Meclizine 25 mg q.8 hours as needed. 3. Chlorthalidone 25 mg twice a day. 4. Lipitor 40 mg at bedtime. PHYSICAL EXAMINATION: VITAL SIGNS: On the day of discharge, temperature 98.2, pulse 96, blood pressure 134/89, saturating 99% on room air. His blood pressure during the last 24 hours is much better. GENERAL: The patient is alert, oriented. He is comfortable going home today. CARDIOVASCULAR: Regular rate and rhythm without murmurs, rubs, or gallops. LUNGS: Clear to auscultation bilaterally without wheezing, rales, or rhonchi. ABDOMEN: Soft, nontender, nondistended. Good bowel sounds. EXTREMITIES: Without any pitting edema. HOSPITAL COURSE: This is a 59-year-old male presented with dizziness and vertigo-like symptoms. Initial workup was quite unrevealing. 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 Carotid Doppler without any hemodynamically significant stenosis. Drug screen showed benzos and marijuana positive. He did not have any hearing deficits or ear fullness or tinnitus. His symptoms of dizziness mostly due to uncontrolled hypertension as the next 2 days we tried to bring his blood pressure steadily down. His systolic for the most part remained around 180. Requiring 4 times a day hydralazine titration. It took over 2 days to bring his blood pressure from systolic 170 range to 130 to 140 range without any neurological compromise. Renal ultrasound did not show any arterial stenosis. His COVID negative. His TSH in the normal range. LDL is 92. Blood pressure improved with titrating his blood pressure medication and the diuretics changed from hydrochlorothiazide to long-acting chlorthalidone as well as discontinuing hydralazine and putting him on Procardia. The patient monitored for another 24 hours and his blood pressure remained stable for the most part, in the systolic below 150 range. The patient reached maximum benefit during this hospitalization and he would benefit with ongoing adherence to his blood pressure medications and close followup with his primary care physician. DISCHARGE INSTRUCTIONS: Activity as tolerated. Healthy heart diet. Follow up with PCP in 1 week. TIME SPENT: Discharge time took over 35 minutes. Job ID: [id number] MTDD
--- NOTE | 2020-06-16 18:37 | PRG ---
DATE OF SERVICE: 06/16/2020 SUBJECTIVE: The patient is seen and examined. OBJECTIVE: VITAL SIGNS: Noted with the following vital signs; afebrile, temperature 98.2, pulse 96, and blood pressure 134/89. HEENT: Unremarkable. CARDIOVASCULAR SYSTEM: First and second heart sounds were heard. RESPIRATORY SYSTEM: Clear to auscultation. DIGESTIVE SYSTEM: Revealed a benign abdomen with positive bowel sounds. EXTREMITIES: No peripheral edema. SKIN: No new gross rash. LYMPHATICS: No peripheral lymphadenopathy. LABORATORY INVESTIGATION: Showed unremarkable chemistry. IMPRESSION: Hypertension, suboptimally controlled, now much improved. PLAN: 1. Continue current regimen of antihypertensive medications. 2. Outpatient Nephrology followup, status post discharge. Job ID: [id number]
== END 2020-06-16 10:56 | disposition home or self-care (01) | DRG 305 ==
LOC: ERS 16:53 → 2SE 19:01 → OBSVTOIN 06-14 11:48
PROVIDERS: ADMIT Family Medicine; ATTEND Family Medicine
DX: I16.1 Hypertensive emergency (principal); E87.2 Acidosis; Z20.828 Contact with and (suspected) exposure to other viral communicable diseases; I10 Essential (primary) hypertension; E87.6 Hypokalemia; R53.1 Weakness; F17.200 Nicotine dependence, unspecified, uncomplicated; Z91.14 Patient's other noncompliance with medication regimen
CPT/HCPCS: 36415; 70450; 70551; 76770; 80048; 80053; 80061; 80306; 81001; 82088; 82550; 84244; 84443; 84484; 85025; 85610; 85730; 87086; 87635; 90471; 90732; 93005; 93306; 93880; 96361; 96372; 96374; 96375; 96376; G0009; G0378; J1650; J2405; J2550; J3480; U0003

== ENCOUNTER 2020-12-12 12:56 | Emergency (ER) | payer SELFPAY ==
[2020-12-12 13:50] LABS: ALT (SGPT) 30 U/L (8-55); AST (SGOT) 17 U/L (5-34); Albumin 4.1 g/dL (3.5-5.0); Alkaline Phosphatase 80 U/L (40-110); Anion Gap 14 mmol/L (10-20); BUN (Urea Nitrogen) 14 mg/dL (8.4-25.7); Bilirubin, Total 0.4 mg/dL (0.2-1.2); Calc. Creatinine Clearance 0 mL/min (70-130); Calcium 8.8 mg/dL (7.8-10.44); Carbon Dioxide 25 mmol/L (22-29); Chloride 107 mmol/L (98-107); Globulin 3.2 g/dL (2.4-3.5); Glucose 129 mg/dL (70-105); Lipase 18 U/L (8-78); Potassium 3.8 mmol/L (3.5-5.1); Protein, Total 7.3 g/dL (6.0-8.3); Sodium 142 mmol/L (136-145)
[2020-12-12 14:20] LABS: Band 2 % (5-11); Eosinophils 2 % (0-10); Hemoglobin 15.2 g/dL (14.0-18.0); Lymphocytes 28 % (21-51); MDiff Complete? YES; Mean Corpuscular HGB CONC 35.5 g/dL (32.0-36.0); Mean Corpuscular Hemoglobin 32.4 pg (27.0-31.0); Mean Corpuscular Volume 91.3 fL (78.0-98.0); Mean Platelet Volume 7.2 fL (7.4-10.4); Monocytes 5 % (0-10); Neutrophil 63 % (42-75); Platelet Count 198 thou/uL (130-400); Platelet Morphology Comment Appears Adequate; RBC Morphology Normal; Red Blood Cell (RBC) Count 4.69 mill/uL (4.70-6.10); White Blood Cell (WBC) Count 4.5 thou/uL (4.8-10.8)
== END 2020-12-12 16:53 | disposition home or self-care (01) ==
LOC: ERS 12:56
DX: R07.89 Other chest pain (principal); I10 Essential (primary) hypertension; F17.210 Nicotine dependence, cigarettes, uncomplicated; Z79.899 Other long term (current) drug therapy
CPT/HCPCS: 36415; 71045; 80053; 83690; 84484; 85025; 93005; 94760

== ENCOUNTER 2022-04-12 04:16 | Emergency (ER) | payer OTHER, SELFPAY | END 2022-04-12 05:17 | disposition home or self-care (01) | LOC: ERS 04:16 | DX: M79.602 Pain in left arm (principal); I10 Essential (primary) hypertension; F17.210 Nicotine dependence, cigarettes, uncomplicated; Z79.899 Other long term (current) drug therapy | CPT/HCPCS: 99283 ==